=== PATIENT | female | born 1980 | race Caucasian/White ===

== ENCOUNTER 2017-12-23 17:47 | Inpatient (IN) | payer OTHER ==
[~2017-12-23] VITALS: Ht 137.2 cm; Wt 74.6 kg
[2017-12-23 18:16] LABS: microscopic required? NO
[2017-12-23 18:27] LABS: BASOPHIL % 0.2 % (0-2); PLATELET COUNT 351 x10^3mcL (130-400); RED CELL DISTRIBUTION WIDTH 14.2 % (11.5-14.5)
[2017-12-23 18:31] LABS: AMPHETAMINE QUAL UR NONE DETECTED (NEG <=1000)
[2017-12-23 18:32] LABS: UA SPECIFIC GRAVITY 1.025 (1.005-1.035); urine erythrocyte NEGATIVE (NEGATIVE)
[2017-12-23 18:49] LABS: CALCIUM 9.4 mg/dL (8.5-10.1); CARBON DIOXIDE 27.4 mmol/L (21-32); CHLORIDE SERUM 100 mmol/L (98-107); CREATININE SERUM 0.6 mg/dL (0.6-1.0); GFR1 > 60 mL/min; GLUCOSE SERUM 124 mg/dL (74-106); SODIUM SERUM 139 mmol/L (136-145)
[2017-12-23 18:52] LABS: ALKALINE PHOSPHATASE 65 U/L (46-116); ALT/SGPT 69 U/L (14-59); AST/SGOT 44 U/L (15-37); BILIRUBIN TOTAL 0.41 mg/dL (0.20-1.00); LIPASE 1000 IU/L (73-393); MAGNESIUM 1.7 mg/dL (1.8-2.4); T4(THYROXINE) 6.6 ug/dL (4.7-13.3)
[2017-12-23 18:58] LABS: ALBUMIN 3.3 g/dL (3.4-5.0); AMYLASE 130 U/L (25-115); CHOLESTEROL 224 mg/dL (<200); HDL CHOLESTEROL 96 mg/dL (40-60)
[2017-12-23 20:47] LABS: CHOLESTEROL/HDL RATIO 2.4; PHOSPHOROUS 4.8 mg/dL (2.5-4.9)
[2017-12-23 21:20] LABS: FREE T4 0.83 ng/dL (0.76-1.46); T4(THYROXINE) 5.7 ug/dL (4.7-13.3)
[2017-12-23 21:22] LABS: T3 TOTAL 0.99 ng/mL
[2017-12-23 21:38] VITALS: BP 128/75
[2017-12-23 22:37] VITALS: BP 128/75
[2017-12-23 23:20] VITALS: BP 119/56
[2017-12-24] MEDS ORDERED: BENZTROPINE MESY2 MG PO (01:23)
[2017-12-24] MEDS ORDERED: ABILIFY20 M1 PO (01:23)
[2017-12-24] MEDS ORDERED: COLACE100 MG PO (01:24)
[2017-12-24] MEDS ORDERED: PHOSLO667 MG PO (01:24)
[2017-12-24] MEDS ORDERED: CLARITIN10 MG PO (01:25)
[2017-12-24] MEDS ORDERED: ESCITALOPRAM10 M1 PO (01:25)
[2017-12-24] MEDS ORDERED: N-ACETYL-L-CYS600 MG PO (01:26)
[2017-12-24] MEDS ORDERED: GOOD SENSE OMEP20 MG PO (01:27)
[2017-12-24] MEDS ORDERED: ZOLOFT25 MG PO (01:27)
[2017-12-24] MEDS ORDERED: RISPERIDONE2 M1 PO (01:27)
[2017-12-24] MEDS ORDERED: D-20001 TAB PO (01:28)
[2017-12-24 03:00] VITALS: BP 126/65
[2017-12-24 05:37] LABS: BASOPHIL % 0.3 % (0-2); PLATELET COUNT 311 x10^3mcL (130-400); RED CELL DISTRIBUTION WIDTH 13.8 % (11.5-14.5)
[2017-12-24 05:52] LABS: CALCIUM 8.6 mg/dL (8.5-10.1); CARBON DIOXIDE 26.8 mmol/L (21-32); CHLORIDE SERUM 104 mmol/L (98-107); CREATININE SERUM 0.5 mg/dL (0.6-1.0); GFR1 > 60 mL/min; GLUCOSE SERUM 108 mg/dL (74-106); POTASSIUM SERUM 4.1 mmol/L (3.5-5.1); SODIUM SERUM 139 mmol/L (136-145)
[2017-12-24 11:50] VITALS: BP 125/79
[2017-12-24 15:45] VITALS: BP 106/65
[2017-12-24 19:15] VITALS: BP 109/58
[2017-12-24 23:11] VITALS: BP 94/87
[2017-12-25 03:11] VITALS: BP 109/73
[2017-12-25 05:44] LABS: BASOPHIL % 0.4 % (0-2); PLATELET COUNT 296 x10^3mcL (130-400); RED CELL DISTRIBUTION WIDTH 13.9 % (11.5-14.5)
[2017-12-25 06:05] LABS: CALCIUM 8.7 mg/dL (8.5-10.1); CARBON DIOXIDE 26.6 mmol/L (21-32); CHLORIDE SERUM 106 mmol/L (98-107); CREATININE SERUM 0.5 mg/dL (0.6-1.0); GFR1 > 60 mL/min; GLUCOSE SERUM 113 mg/dL (74-106); MAGNESIUM 1.8 mg/dL (1.8-2.4); PHOSPHOROUS 4.3 mg/dL (2.5-4.9); POTASSIUM SERUM 4.2 mmol/L (3.5-5.1); SODIUM SERUM 141 mmol/L (136-145)
[2017-12-25 07:36] VITALS: BP 118/76
[2017-12-25 07:40] VITALS: Ht 137.2 cm; Wt 74.6 kg
[2017-12-25 07:47] LABS: AMYLASE 94 U/L (25-115); LIPASE 86 IU/L (73-393)
[2017-12-25 12:32] VITALS: BP 126/75
[2017-12-25 16:08] VITALS: BP 124/78
[2017-12-25 20:14] VITALS: BP 111/61
[2017-12-26 00:30] VITALS: BP 114/70
[2017-12-26 05:06] VITALS: BP 109/68
[2017-12-26 05:07] VITALS: BP 122/70
[2017-12-26 09:42] VITALS: BP 110/73
[2017-12-26 11:57] VITALS: BP 110/73
[2017-12-26 13:04] VITALS: BP 119/73
== END 2017-12-26 17:05 | DRG 438 ==
LOC: ED 17:47 → IC 20:07 → DU 20:07 → IC 21:23 → DU 12-26 01:15 → MU 12-26 08:50
PROVIDERS: Emergency Medicine; Family Medicine
DX: K85.90 Acute pancreatitis without necrosis or infection, unspecified (principal); N17.0 Acute kidney failure with tubular necrosis; E87.2 Acidosis; Q87.1 Congenital malformation syndromes predominantly associated with short stature; K21.9 Gastro-esophageal reflux disease without esophagitis; K80.20 Calculus of gallbladder without cholecystitis without obstruction; F25.0 Schizoaffective disorder, bipolar type; F42.4 Excoriation (skin-picking) disorder; F32.9 Major depressive disorder, single episode, unspecified; E11.51 Type 2 diabetes mellitus with diabetic peripheral angiopathy without gangrene; M85.80 Other specified disorders of bone density and structure, unspecified site; G40.909 Epilepsy, unspecified, not intractable, without status epilepticus; G47.30 Sleep apnea, unspecified; Z68.35 Body mass index [BMI] 35.0-35.9, adult
CPT/HCPCS: 82962; 83880; 84439; G0480; J0132; J2543; J7030; Q0092